=== PATIENT | male | born 1950 | race Caucasian/White ===

== ENCOUNTER 2018-03-15 07:13 | Observation (INO) | payer MEDICARE, BC ==
[~2018-03-15 07:13] MED LIST: CEFAZOLIN 2 GM/50 ML (PMX) 50 ML IVPB; EPHEDrine SULFATE 50 MG/5 ML SYG; LACTATED RINGER'S 1,000 ML IV*
[2018-03-15] MEDS ORDERED: GELATIN SIZE 100 SPONGE (08:51)
[2018-03-15] MEDS ORDERED: THROMBIN 5000 UNIT VIAL (08:51)
[2018-03-15] MEDS ORDERED: LIDOCAINE 2% (SDV) 5 ML INJ (09:11)
[2018-03-15] MEDS ORDERED: SUCCINYLCHOLINE CHLORIDE 100 MG/5 ML SYG IV (09:11)
[2018-03-15] MEDS ORDERED: FENTAnyl 50 MCG/ML VIAL (09:11)
[2018-03-15] MEDS ORDERED: MIDAZOLAM 1 MG/ML 2 ML INJ (09:11)
[2018-03-15] MEDS ORDERED: ROCURONIUM 50 MG INJ (09:11)
[2018-03-15] MEDS ORDERED: PROPOFOL 20 ML ×2 (09:11→09:33)
[2018-03-15] MEDS ORDERED: DEXAMETHASONE 4 MG/ML 1 ML INJ (09:34)
[2018-03-15] MEDS ORDERED: ONDANSETRON 4 MG INJ (09:34)
[2018-03-15] MEDS ORDERED: FAMOTIDINE 20 MG INJ (09:34)
[2018-03-15] MEDS ORDERED: PHENYLephrine (100 MCG/ML) 5ML SYG (09:35)
[2018-03-15] MEDS: POLYMYXIN/BACITRACIN 1L IRRIG (10:22)
[2018-03-15] MEDS: BUPIVACAINE 0.25% (MPF) 30 ML INJ (10:22)
[2018-03-15] MEDS ORDERED: HYDROmorphONE 2 MG/ML SYG (11:04)
[2018-03-15] MEDS ORDERED: SUGAMMADEX SODIUM 200 MG/2 ML VIAL IV (11:13)
[2018-03-15] MEDS ORDERED: TRIMETHOBENZAMIDE 100 MG/ML VIAL IM (12:00)
[2018-03-15] MEDS ORDERED: HYDROCODONE/APAP (5/325) TAB PO (12:00)
[2018-03-15] MEDS ORDERED: NALOXONE (0.4 MG/ML) INJ IV (12:00)
[2018-03-15] MEDS ORDERED: MEPERIDINE 25 MG INJ IV (12:00)
[2018-03-15] MEDS ORDERED: EPHEDrine SULFATE 50 MG/5 ML SYG IV (12:00)
[2018-03-15] MEDS ORDERED: HYDROmorphONE (0.2 MG/ML) 10ML SYG IV ×2 (12:00)
[2018-03-15] MEDS ORDERED: LABETALOL HCL 20MG INJ IV (12:00)
[2018-03-15] MEDS ORDERED: NACL 0.9% 3 ML SYG IV (12:00)
[2018-03-15] MEDS ORDERED: AL HYDROX/MG HYDROX/SIMETH 30 ML CUP PO (12:00)
[2018-03-15] MEDS ORDERED: PROCHLORPERAZINE 10 MG TAB PO (12:00)
[2018-03-15] MEDS ORDERED: FENTAnyl 50 MCG/ML VIAL IV ×3 (12:00)
[2018-03-15] MEDS ORDERED: DIAZEPAM 5 MG TAB PO (12:00)
[2018-03-15] MEDS ORDERED: DIPHENHYDRAMINE 50 MG CAP PO (12:00)
[2018-03-15] MEDS ORDERED: ACETAMINOPHEN 325 MG TAB PO (12:00)
[2018-03-15] MEDS ORDERED: hydrALAzine 20 MG INJ IV (12:00)
[2018-03-15] MEDS ORDERED: PROCHLORPERAZINE 10 MG INJ IV (12:00)
[2018-03-15] MEDS ORDERED: BETHANECHOL 25 MG TAB PO (12:00)
[2018-03-15] MEDS ORDERED: ONDANSETRON 4 MG INJ IV ×2 (12:00)
[2018-03-15] MEDS ORDERED: DIPHENHYDRAMINE 50 MG INJ IV (12:00)
[2018-03-15] MEDS ORDERED: DIAZEPAM 5 MG/ML SYG IM (12:00)
[2018-03-15] MEDS: CEFAZOLIN 1 GM/50 ML (PMX) 50 ML IVPB ×3 (12:10→23:52)
[2018-03-15] MEDS: HYDROmorphONE (0.2 MG/ML) 10ML SYG IV (12:37)
[2018-03-15] MEDS: HYDROmorphONE 0.2 MG/ML PCA IV (12:42)
[2018-03-15] MEDS: DEXTROSE 5%-0.45% NACL 1,000 ML IV ×2 (14:31→21:48)
[2018-03-15] MEDS: CEPASTAT LOZENGE MT (17:39)
[2018-03-15] MEDS: ZOLPIDEM 5 MG TAB PO (20:59)
[2018-03-15] MEDS: RANITIDINE 150 MG TAB PO (20:59)
[2018-03-16] MEDS: HYDROmorphONE 0.2 MG/ML PCA IV (05:50)
[2018-03-16 05:53] LABS: HEMATOCRIT 34.5 % (42.0-52.0); HEMOGLOBIN 11.5 g/dl (14.0-18.0)
[2018-03-16] MEDS: DEXTROSE 5%-0.45% NACL 1,000 ML IV (05:54)
[2018-03-16] MEDS: CEFAZOLIN 1 GM/50 ML (PMX) 50 ML IVPB (05:54)
[2018-03-16 06:40] LABS: ANION GAP 14 (8-16); BLOOD UREA NITROGEN 14 mg/dl (7-20); CALCIUM 8.8 mg/dl (8.4-10.2); CARBON DIOXIDE 24 mmol/L (21-31); CHLORIDE 107 mmol/L (97-110); CREATININE 1.12 mg/dl (0.61-1.24); GLUCOSE 108 mg/dl (70-220); SODIUM 141 mmol/L (135-144)
[2018-03-16] MEDS: HYDROCODONE/APAP (5/325) TAB PO ×2 (08:01→12:05)
[2018-03-16] MEDS: BETHANECHOL 25 MG TAB PO (08:01)
[2018-03-16] MEDS: DOCUSATE SODIUM 100 MG CAP PO (09:00)
[2018-03-16] MEDS: FERROUS SULFATE (EC) 325 MG TAB PO ×2 (09:00→12:05)
[2018-03-16] MEDS: ASCORBIC ACID 500 MG TAB PO (09:00)
[2018-03-16] MEDS: RANITIDINE 150 MG TAB PO (09:00)
[2018-03-16 10:47] LABS: ADD UMIC YES; UR ASCORBIC ACID NEGATIVE (NEGATIVE); UR BILIRUBIN (Dip) NEGATIVE (NEGATIVE); UR BLOOD (Dip) NEGATIVE (NEGATIVE); UR CLARITY CLEAR (CLEAR); UR COLOR YELLOW (YELLOW); UR GLUCOSE (Dip) NEGATIVE (NEGATIVE); UR KETONES (Dip) NEGATIVE (NEGATIVE); UR LEUKOCYTE ESTERASE (Dip) TRACE Leu/ul (NEGATIVE); UR NITRITE (Dip) NEGATIVE (NEGATIVE); UR RBC 3 /HPF (0-5); UR SPECIFIC GRAVITY (Dip) 1.012 (1.003-1.030); UR TOTAL PROTEIN (Dip) NEGATIVE (NEGATIVE); UR UROBILINOGEN (Dip) NEGATIVE (NEGATIVE); UR WBC 4 /HPF (0-5)
== END 2018-03-16 13:10 | disposition home or self-care (01) ==
LOC: REC 07:13 → MS1 12:53
DX: M51.26 Other intervertebral disc displacement, lumbar region (principal); M48.061 Spinal stenosis, lumbar region without neurogenic claudication
CPT/HCPCS: 63030; 72020; 80048; 81001; 85014; 85018; 86850; 86900; 86901; 86920; 87086; 88304; 88311; 97116; 97161; 97530; 99217